=== PATIENT | female | born 1940 | race Two or more races ===

== ENCOUNTER 2023-06-12 13:11 | Inpatient (IN) | payer MEDICARE, OTHER ==
[~2023-06-12] VITALS: Ht 152.4 cm; Wt 75.7 kg
[2023-06-12] MEDS: PANTOPRAZOLE 40 MG VIAL IV ONE (13:30)
[2023-06-12] MEDS ORDERED: PANTOPRAZOLE 40 MG VIAL ONE (13:39)
[2023-06-12 13:47] LABS: BASOPHILS # (AUTO) 0.2 K/uL (0.0-0.2); BASOPHILS % (AUTO) 1.9 % (0.0-2.0); EOSINOPHILS # (AUTO) 0.2 K/uL (0.0-0.7); EOSINOPHILS % (AUTO) 1.7 % (0.0-6.0); HEMATOCRIT 24 % (33-45); HEMOGLOBIN 7.8 g/dL (11.5-14.8); LYMPHOCYTES # (AUTO) 1.6 K/uL (0.8-4.8); LYMPHOCYTES % (AUTO) 17.3 % (20.0-44.0); MEAN CORPUSCULAR HEMOGLOBIN 28 PG (26.0-33.0); MEAN CORPUSCULAR HGB CONC 33 g/dl (31.0-36.0); MEAN CORPUSCULAR VOLUME 85 fL (82-100); MONOCYTES # (AUTO) 0.4 K/uL (0.1-1.30); MONOCYTES % (AUTO) 4.9 % (2.0-12.0); NEUTROPHILS # (AUTO) 6.8 K/uL (1.8-8.9); NEUTROPHILS % (AUTO) 74.2 % (43.0-81.0); PLATELET COUNT (AUTO) 422 K/uL (150-450); RED BLOOD CELL COUNT(AUTO) 2.79 MIL/uL (4.0-5.2); RED CELL DISTRIBUTION WIDTH 21.4 % (11.5-15.0); WHITE BLOOD COUNT (AUTO) 9.2 K/uL (4.3-11.0)
[2023-06-12 13:56] LABS: CALCIUM, SERUM 8.6 mg/dL (8.5-10.1); CREATININE 1.2 mg/dL (0.6-1.3); POTASSIUM 4.3 mmol/L (3.5-5.1)
[2023-06-12 14:01] LABS: ALBUMIN 2.8 g/dL (3.4-5.0); BILIRUBIN,DIRECT 0.2 mg/dL (0.0-0.2); BILIRUBIN,TOTAL 0.6 mg/dL (0.2-1.0); TOTAL PROTEIN, SERUM 6.7 g/dL (6.4-8.2)
[2023-06-12 14:03] LABS: INR 1.18 (0.91-1.10); PARTIAL THROMBOPLASTIN TIME 26.4 SEC (24.3-34.3); PROTHROMBIN TIME 12.4 SECS (9.2-11.1)
[2023-06-12] MEDS ORDERED: SACC250C PO (15:41)
[2023-06-12] MEDS ORDERED: BUDE10.2 IH (15:41)
[2023-06-12] MEDS ORDERED: SEMA1PEN SQ (15:41)
[2023-06-12] MEDS ORDERED: DOXA4TAB3 PO (15:41)
[2023-06-12] MEDS ORDERED: CALC-1321 PO (15:41)
[2023-06-12] MEDS ORDERED: BRIN8DRO2 EACHEYE (15:41)
[2023-06-12] MEDS ORDERED: OMEP20CA15 PO (15:41)
[2023-06-12] MEDS ORDERED: CLON1PAT2 TD (15:41)
[2023-06-12] MEDS ORDERED: LIFI1DRO4 EACHEYE (15:41)
[2023-06-12] MEDS ORDERED: ICOS1CAP PO (15:41)
[2023-06-12] MEDS ORDERED: LOPE-195 PO (15:41)
[2023-06-12] MEDS ORDERED: METF-442 PO (15:41)
[2023-06-12] MEDS ORDERED: NEBI10TA2 PO (15:41)
[2023-06-12] MEDS ORDERED: CYAN-3 SQ (15:41)
[2023-06-12] MEDS ORDERED: ATOR80TA PO (15:41)
[2023-06-12] MEDS ORDERED: BLOO-668 IN (15:41)
[2023-06-12] MEDS ORDERED: NETA2.5D3 EACHEYE (15:41)
[2023-06-12] MEDS ORDERED: MULT-213 PO (15:41)
[2023-06-12] MEDS ORDERED: ZOLP5TAB2 PO (15:41)
[2023-06-12] MEDS ORDERED: MAGNESIUM HYDROXIDE 30 ML UDC PO PRN (17:00)
[2023-06-12] MEDS ORDERED: ONDANSETRON HCL/PF 4 MG/2 ML VIAL IVP PRN (17:00)
[2023-06-12] MEDS ORDERED: MAG HYDROX/AL HYDROX/SIMETH 30 ML UDC PO PRN (17:00)
[2023-06-12] MEDS ORDERED: LOPERAMIDE HCL (2 MG CAP) 2 MG CAPSULE PO PRN (17:00)
[2023-06-12] MEDS ORDERED: Z GUARD REMEDY 4 OZ OINT TP PRN (17:00)
[2023-06-12] MEDS: DOXAZOSIN MESYLATE (4 MG) 4 MG TABLET PO SCH (18:35)
[2023-06-12 20:00] VITALS: BP 157/67; TEMP 98.2; O2SAT 97
[2023-06-12] MEDS: IV NS 0.9% 1,000 ML IV PRN (23:22)
[2023-06-13] VITALS: BP 141/50; TEMP 97.9; O2SAT 100
[2023-06-13 04:00] VITALS: BP 121/54; TEMP 98; O2SAT 97
[2023-06-13 06:57] LABS: BASOPHILS # (AUTO) 0.1 K/uL (0.0-0.2); BASOPHILS % (AUTO) 0.8 % (0.0-2.0); EOSINOPHILS # (AUTO) 0.3 K/uL (0.0-0.7); EOSINOPHILS % (AUTO) 3.4 % (0.0-6.0); HEMATOCRIT 24 % (33-45); HEMOGLOBIN 7.8 g/dL (11.5-14.8); LYMPHOCYTES # (AUTO) 1.5 K/uL (0.8-4.8); LYMPHOCYTES % (AUTO) 19.6 % (20.0-44.0); MEAN CORPUSCULAR HEMOGLOBIN 28 PG (26.0-33.0); MEAN CORPUSCULAR HGB CONC 33 g/dl (31.0-36.0); MEAN CORPUSCULAR VOLUME 85 fL (82-100); MONOCYTES # (AUTO) 0.5 K/uL (0.1-1.30); MONOCYTES % (AUTO) 6.3 % (2.0-12.0); NEUTROPHILS # (AUTO) 5.2 K/uL (1.8-8.9); NEUTROPHILS % (AUTO) 69.9 % (43.0-81.0); PLATELET COUNT (AUTO) 383 K/uL (150-450); RED BLOOD CELL COUNT(AUTO) 2.76 MIL/uL (4.0-5.2); RED CELL DISTRIBUTION WIDTH 21.1 % (11.5-15.0); WHITE BLOOD COUNT (AUTO) 7.5 K/uL (4.3-11.0)
[2023-06-13 07:31] LABS: CALCIUM, SERUM 8.4 mg/dL (8.5-10.1); CREATININE 1.1 mg/dL (0.6-1.3); MAGNESIUM 1.3 mg/dL (1.8-2.4); PHOSPHORUS 4.1 mg/dL (2.5-4.9); POTASSIUM 4.1 mmol/L (3.5-5.1)
[2023-06-13 08:00] VITALS: BP 133/75; TEMP 96.5; O2SAT 93
[2023-06-13] MEDS: PANTOPRAZOLE 40 MG VIAL IV SCH (09:39)
[2023-06-13] MEDS: MAGNESIUM OXIDE 400 MG TABLET PO ONE (09:39)
[2023-06-13 12:00] VITALS: BP 161/69; TEMP 98.2; O2SAT 95
[2023-06-13 16:00] VITALS: BP 152/62; TEMP 98.2; O2SAT 95
[2023-06-13 20:47] VITALS: BP 104/106; TEMP 97.9; O2SAT 94
[2023-06-14 00:10] VITALS: BP 148/60; TEMP 97.9; O2SAT 94
[2023-06-14 04:19] VITALS: BP 137/60; TEMP 97.9; O2SAT 99
[2023-06-14 07:07] LABS: BASOPHILS % (AUTO) 0.6 % (0.0-2.0); EOSINOPHILS # (AUTO) 0.3 K/uL (0.0-0.7); EOSINOPHILS % (AUTO) 3.2 % (0.0-6.0); HEMATOCRIT 24 % (33-45); HEMOGLOBIN 7.8 g/dL (11.5-14.8); LYMPHOCYTES # (AUTO) 1.1 K/uL (0.8-4.8); LYMPHOCYTES % (AUTO) 12.4 % (20.0-44.0); MEAN CORPUSCULAR HEMOGLOBIN 28 PG (26.0-33.0); MEAN CORPUSCULAR HGB CONC 33 g/dl (31.0-36.0); MEAN CORPUSCULAR VOLUME 86 fL (82-100); MONOCYTES # (AUTO) 0.4 K/uL (0.1-1.30); MONOCYTES % (AUTO) 4.3 % (2.0-12.0); NEUTROPHILS # (AUTO) 6.9 K/uL (1.8-8.9); NEUTROPHILS % (AUTO) 79.5 % (43.0-81.0); PLATELET COUNT (AUTO) 392 K/uL (150-450); RED BLOOD CELL COUNT(AUTO) 2.75 MIL/uL (4.0-5.2); RED CELL DISTRIBUTION WIDTH 21.4 % (11.5-15.0); WHITE BLOOD COUNT (AUTO) 8.7 K/uL (4.3-11.0)
[2023-06-14 08:00] VITALS: BP 162/76; TEMP 97.9; O2SAT 99
[2023-06-14 08:07] LABS: ALANINE AMINOTRANSFERASE 19 U/L (12-78); ALBUMIN 2.6 g/dL (3.4-5.0); ALKALINE PHOSPHATASE 72 U/L (46-116); ASPARTATE AMINOTRANSFERASE 15 U/L (15-37); CALCIUM, SERUM 8.3 mg/dL (8.5-10.1); CARBON DIOXIDE 21 mmol/L (21-32); CHLORIDE 110 mmol/L (98-107); CREATININE 0.9 mg/dL (0.6-1.3); GLUCOSE 126 mg/dL (74-106); POTASSIUM 3.9 mmol/L (3.5-5.1); SODIUM SERUM 143 mmol/L (136-145); TOTAL PROTEIN, SERUM 6.1 g/dL (6.4-8.2); UREA NITROGEN, BLOOD 11 mg/dL (7-18)
[2023-06-14] MEDS: ACETAMINOPHEN 325 MG TABLET PO PRN (08:17)
[2023-06-14 12:00] VITALS: BP 162/76; TEMP 97.9; O2SAT 99
[2023-06-14] MEDS: CLONIDINE HCL 0.1 MG TABLET PO PRN (14:55)
[2023-06-14 16:32] VITALS: BP 154/73; TEMP 97.6; O2SAT 96
[2023-06-14 20:00] VITALS: BP 139/78; TEMP 98.4; O2SAT 96
[2023-06-15] VITALS: BP 142/78; TEMP 98.4; O2SAT 96
[2023-06-15 04:00] VITALS: BP 145/80; TEMP 98; O2SAT 96
[2023-06-15 08:00] VITALS: BP 139/53; TEMP 98.5; O2SAT 96
[2023-06-15 12:00] VITALS: BP 145/68; TEMP 98.5; O2SAT 94
[2023-06-15 15:12] LABS: BASOPHILS # (AUTO) 0.1 K/uL (0.0-0.2); BASOPHILS % (AUTO) 0.7 % (0.0-2.0); EOSINOPHILS # (AUTO) 0.2 K/uL (0.0-0.7); EOSINOPHILS % (AUTO) 2.1 % (0.0-6.0); HEMATOCRIT 25 % (33-45); HEMOGLOBIN 8.1 g/dL (11.5-14.8); LYMPHOCYTES # (AUTO) 0.9 K/uL (0.8-4.8); LYMPHOCYTES % (AUTO) 11.9 % (20.0-44.0); MEAN CORPUSCULAR HEMOGLOBIN 28 PG (26.0-33.0); MEAN CORPUSCULAR HGB CONC 32 g/dl (31.0-36.0); MEAN CORPUSCULAR VOLUME 87 fL (82-100); MONOCYTES # (AUTO) 0.3 K/uL (0.1-1.30); MONOCYTES % (AUTO) 4.5 % (2.0-12.0); NEUTROPHILS # (AUTO) 6.2 K/uL (1.8-8.9); NEUTROPHILS % (AUTO) 80.8 % (43.0-81.0); PLATELET COUNT (AUTO) 386 K/uL (150-450); RED BLOOD CELL COUNT(AUTO) 2.86 MIL/uL (4.0-5.2); RED CELL DISTRIBUTION WIDTH 21.9 % (11.5-15.0); WHITE BLOOD COUNT (AUTO) 7.7 K/uL (4.3-11.0)
[2023-06-15 15:26] LABS: ALANINE AMINOTRANSFERASE 16 U/L (12-78); ALBUMIN 2.6 g/dL (3.4-5.0); ALKALINE PHOSPHATASE 81 U/L (46-116); ASPARTATE AMINOTRANSFERASE 16 U/L (15-37); BILIRUBIN,TOTAL 1.1 mg/dL (0.2-1.0); CALCIUM, SERUM 8.5 mg/dL (8.5-10.1); CARBON DIOXIDE 23 mmol/L (21-32); CHLORIDE 110 mmol/L (98-107); GLUCOSE 140 mg/dL (74-106); POTASSIUM 4.5 mmol/L (3.5-5.1); SODIUM SERUM 144 mmol/L (136-145); TOTAL PROTEIN, SERUM 6.1 g/dL (6.4-8.2); UREA NITROGEN, BLOOD 11 mg/dL (7-18)
[2023-06-15 16:00] VITALS: BP 140/55; TEMP 98.5; O2SAT 94
[2023-06-15 17:06] LABS: ANISOCYTOSIS 1+; LYMPHOCYTES % (MANUAL) 12 % (16-48); MONOCYTES % (MANUAL) 2 % (0-11.0); NEUTROPHILS % (MANUAL) 86 (42-76); PLATELET ESTIMATE ADEQUATE
[2023-06-15 17:07] LABS: OVALOCYTES 1+; ROULEAUX 1+
[2023-06-15] MEDS: METOPROLOL TARTRATE 25 MG TABLET PO ONE (18:18)
[2023-06-15] MEDS: FUROSEMIDE 20 MG/2 ML VIAL IV STA (18:28)
[2023-06-15 20:00] VITALS: BP 135/53; TEMP 98.9; O2SAT 96
[2023-06-16] VITALS: BP 130/55; TEMP 98; O2SAT 96
[2023-06-16 04:00] VITALS: BP 167/57; TEMP 97.9; O2SAT 99
[2023-06-16 07:56] LABS: BASOPHILS % (AUTO) 0.5 % (0.0-2.0); EOSINOPHILS # (AUTO) 0.2 K/uL (0.0-0.7); EOSINOPHILS % (AUTO) 2.7 % (0.0-6.0); HEMATOCRIT 25 % (33-45); HEMOGLOBIN 8.1 g/dL (11.5-14.8); LYMPHOCYTES # (AUTO) 1.1 K/uL (0.8-4.8); LYMPHOCYTES % (AUTO) 13.7 % (20.0-44.0); MEAN CORPUSCULAR HEMOGLOBIN 29 PG (26.0-33.0); MEAN CORPUSCULAR HGB CONC 33 g/dl (31.0-36.0); MEAN CORPUSCULAR VOLUME 86 fL (82-100); MONOCYTES # (AUTO) 0.5 K/uL (0.1-1.30); MONOCYTES % (AUTO) 5.8 % (2.0-12.0); NEUTROPHILS # (AUTO) 6.3 K/uL (1.8-8.9); NEUTROPHILS % (AUTO) 77.3 % (43.0-81.0); PLATELET COUNT (AUTO) 398 K/uL (150-450); RED BLOOD CELL COUNT(AUTO) 2.85 MIL/uL (4.0-5.2); RED CELL DISTRIBUTION WIDTH 22.2 % (11.5-15.0); WHITE BLOOD COUNT (AUTO) 8.1 K/uL (4.3-11.0)
[2023-06-16 08:00] VITALS: BP 155/68; TEMP 98.1; O2SAT 96
[2023-06-16 08:02] LABS: ALBUMIN 2.7 g/dL (3.4-5.0); BILIRUBIN,TOTAL 1.1 mg/dL (0.2-1.0); CALCIUM, SERUM 8.7 mg/dL (8.5-10.1); CREATININE 0.9 mg/dL (0.6-1.3); POTASSIUM 3.6 mmol/L (3.5-5.1); TOTAL PROTEIN, SERUM 6.3 g/dL (6.4-8.2)
[2023-06-16] MEDS: FUROSEMIDE 20 MG/2 ML VIAL IV ONE (08:19)
[2023-06-16] MEDS: METOPROLOL TARTRATE 25 MG TABLET PO ONE (08:19)
[2023-06-16] MEDS ORDERED: CLONIDINE HCL 0.1 MG TABLET PO PRN (08:30)
[2023-06-16] MEDS: FUROSEMIDE 20 MG TABLET PO ONE (09:48)
[2023-06-16 16:00] VITALS: BP 142/66; TEMP 98.6; O2SAT 98
[2023-06-17] MEDS ORDERED: PANTOPRAZOLE 40 MG TABLET.DR PO SCH (09:00)
== END 2023-06-16 17:05 | disposition home or self-care (01) | DRG 391 ==
LOC: ER 13:15 → TELE1 16:01
PROVIDERS: ADMIT Internal Medicine; ATTEND Internal Medicine
PROC: 0DB68ZX Excision of Stomach, Via Natural or Artificial Opening Endoscopic, Diagnostic (ICD-10-PCS; principal; 2023-06-15)
DX: K29.70 Gastritis, unspecified, without bleeding (principal); E43 Unspecified severe protein-calorie malnutrition; J98.11 Atelectasis; J90 Pleural effusion, not elsewhere classified; D64.9 Anemia, unspecified; K21.9 Gastro-esophageal reflux disease without esophagitis; I48.91 Unspecified atrial fibrillation; Z95.0 Presence of cardiac pacemaker; Z68.32 Body mass index [BMI] 32.0-32.9, adult; Z20.822 Contact with and (suspected) exposure to COVID-19; E78.5 Hyperlipidemia, unspecified; I10 Essential (primary) hypertension; E11.9 Type 2 diabetes mellitus without complications; Z79.51 Long term (current) use of inhaled steroids; Z79.84 Long term (current) use of oral hypoglycemic drugs; R79.89 Other specified abnormal findings of blood chemistry; E88.09 Other disorders of plasma-protein metabolism, not elsewhere classified; Z79.899 Other long term (current) drug therapy; Z90.49 Acquired absence of other specified parts of digestive tract; Z86.16 Personal history of COVID-19; K57.30 Diverticulosis of large intestine without perforation or abscess without bleeding
CPT/HCPCS: 36415; 71045-TC; 80048-TC; 80053-TC; 80076-TC; 83540-TC; 83690-TC; 83735-TC; 84100-TC; 85025-TC; 85730-TC; 86850-TC; 88305-TC; 88313-TC; 88342; A4223; C9113; G0378; J1940; J2704; J3490; J7030